=== PATIENT | male | born 1930 | race Caucasian/White ===

== ENCOUNTER 2017-06-11 10:01 | Emergency (ER) | payer BC, MEDICARE ==
[~2017-06-11] VITALS: Ht 180.3 cm; Wt 93.0 kg
[~2017-06-11 10:01] MED LIST: AMLO5TAB96; ANTI12.5 PO; ASPI325T PO; CARD30TA PO; CYCL-36 PO; EZET10; OXYC-360 PO; PROS5TAB2; TAB-TAB
[2017-06-11 10:04] VITALS: BP 165/71; PULSE 60; RESP 16; TEMP 98.6; O2SAT 99
[2017-06-11] MEDS ORDERED: OXYC1TAB63 PO (10:19)
[2017-06-11] MEDS ORDERED: AMLO5TAB2 PO (10:19)
[2017-06-11] MEDS ORDERED: DILT30TA PO (10:19)
[2017-06-11] MEDS ORDERED: FINA5TAB2 PO (10:19)
[2017-06-11] MEDS ORDERED: MECL12.574 PO (10:19)
[2017-06-11 10:30] VITALS: BP 175/75; PULSE 56; RESP 16; O2SAT 97
[2017-06-11] MEDS ORDERED: SODIUM CHLORIDE 0.9% FLUSH 10 ML FLUSH IVF PRN (10:45)
--- NOTE | 2017-06-11 10:48 | PD ---
HPI . Back pain Chief Complaint: Flank/Kidney Pain Time Seen by Provider: 10:31 Travel History International Travel<30 days: No Contact w/Intl Traveler<30days: No Traveled to known affect area: No History of Present Illness HPI This patient presents with chief complaint of low back pain. Onset was about 2 days ago. Pain is bilateral. It is exacerbated by movement. Pain is rated 10/ 10. In addition, the patient is complaining with urinary frequency. He also reports constipation. No fever. No nausea or vomiting. He has not taken anything for his pain. PFSH Past Medical History High Cholesterol: Yes Diminished Hearing: No Hypertension: Yes Myocardial Infarction: Yes (TIMES 3) Past Surgical History Appendectomy: Yes Social History Alcohol Use: Yes (rare) Tobacco Use: Yes (1.3 pack day) Substance Use: No Allergies-Medications (Allergen,Severity, Reaction): Coded Allergies: No Known Allergies (Verified Adverse Reaction, Unknown, 06/11/17) Reported Meds & Prescriptions Reported Meds & Active Scripts Active Valium (Diazepam) 5 Mg Tab 5 Mg PO TID PRN Flomax (Tamsulosin HCl) 0.4 Mg Cap 0.4 Mg PO HS Reported Oxycodone-Acetaminophen 5-325 mg Tab 1 Tab PO Q4H PRN Meclizine (Meclizine HCl) 12.5 Mg Tab 12.5 Mg PO DIRECTED PRN Finasteride 5 Mg Tab 5 Mg PO DAILY Do not crush. Diltiazem (Diltiazem HCl) 30 Mg Tab 20 Mg PO DAILY Amlodipine (Amlodipine Besylate) 5 Mg Tab 5 Mg PO DAILY Review of Systems Except as stated in HPI: all other systems reviewed are Neg General / Constitutional: No: Fever, Chills Gastrointestinal: Positive: Constipation, No: Nausea, Vomiting Genitourinary: Positive: Frequency Musculoskeletal: Positive: Pain (low back pain) Neurologic: No: Paresthesia, Incontinence Physical Exam Narrative GENERAL: Patient is awake and alert and in no acute distress. SKIN: warm/dry. Normal color and turgor. HEAD: Normocephalic. Atraumatic. EYES: Pupils equal and round. No scleral icterus. No injection or drainage. ENT: No nasal bleeding or discharge. Mucous membranes pink and moist. NECK: Trachea midline. Full range of motion without pain.. CARDIOVASCULAR: Regular rate and rhythm. Heart sounds are normal. RESPIRATORY: No accessory muscle use. Clear to auscultation. Breath sounds equal bilaterally. GASTROINTESTINAL: Abdomen soft. Nontender. Bowel sounds present. Nondistended. No pulsatile abdominal mass. RECTAL: No stool load palpable in the rectal vault. Prostate is mildly enlarged. It is nontender. MUSCULOSKELETAL: No obvious deformities. NEUROLOGICAL: Awake and alert. No obvious cranial nerve deficits. Motor grossly within normal limits. Normal speech. PSYCHIATRIC: Appropriate mood and affect; insight and judgment normal. Data Data Last Documented VS Vital Signs Date Time Temp Pulse Resp B/P (MAP) Pulse Ox O2 Delivery O2 Flow Rate FiO2 06/11/17 11:41 16 06/11/17 10:30 56 175/75 (108) 97 Room Air 06/11/17 10:04 98.6 Orders Orders Urinalysis - C+S If Indicated (06/11/17 10:31) Ct Abd/Pel W/O Iv Contrast (06/11/17 10:31) Sodium Chloride 0.9% Flush (Ns Flush) (06/11/17 10:45) Morphine Inj (Morphine Inj) (06/11/17 11:00) Ondansetron Inj (Zofran Inj) (06/11/17 11:00) ^ Saline Lock (06/11/17 10:48) Bladder Scan PRN (06/11/17 11:54) Tamsulosin (Flomax) (06/11/17 12:00) Labs Laboratory Tests Test 06/11/17 10:30 Urine Color LIGHT-YELLOW Urine Turbidity CLEAR Urine pH 5.0 Urine Specific [place] 1.008 Urine Protein NEG mg/dL Urine Glucose (UA) NEG mg/dL Urine Ketones NEG mg/dL Urine Occult Blood NEG Urine Nitrite NEG Urine Bilirubin NEG Urine Urobilinogen LESS THAN 2.0 MG/DL Urine Leukocyte Esterase TRACE Urine RBC 1 /hpf Urine WBC 1 /hpf Urine Squamous Epithelial Cells <1 /hpf Microscopic Urinalysis Comment CULT NOT INDICATED MDM Medical Decision Making Medical Screen Exam Complete: Yes Emergency Medical Condition: Yes Differential Diagnosis Differential diagnosis of flank pain includes but is not limited to kidney stone , pyelonephritis, musculoskeletal pain, PE Narrative Course This patient presents with bilateral low back pain. Pain is exacerbated by movement. He does report associated urinary frequency. However, I suspect that the back pain is musculoskeletal. UA negative Last Impressions Abdomen/Pelvis CT 06/11/17 1031 Signed Impressions: Service Date/Time: Sunday, June 11, 2017 10:56 - CONCLUSION: #1 Diverticulosis of the sigmoid colon without evidence of diverticulitis. 2. Severe prostatic hypertrophy and distention of the bladder which may reflect bladder outlet obstruction. No evidence of hydronephrosis or stones. Norma Kahn MD I have subsequently ordered a bladder scan. He may need a Post catheter. Bladder scanner shows residual urine of about 200 cc. Therefore, Post catheter will not be placed. This patient already takes Percocet. I will discharge him with a prescription for Valium for his back pain. I will start him on Flomax. He is to see his primary care provider later in the week. [facility] Point of Care Internal Pos. & Neg. Controls: Passed Fecal Specimen Occult Blood: Negative Diagnosis Primary Impression: Back pain Qualified Codes: M54.5 - Low back pain Additional Impressions: Urinary retention Prostatic hypertrophy Patient Instructions: Acute Low Back Pain (DC), Benign Prostatic Hypertrophy ( DC), General Instructions Med/Other Pt SpecificInfo: Prescription(s) given Scripts Diazepam (Valium) 5 Mg Tab 5 MG PO TID Y for muscle pain, #12 TAB 0 Refills Prov: Cheryl Farmer MD 06/11/17 Tamsulosin (Flomax) 0.4 Mg Cap 0.4 MG PO HS for Manage Prostate Problems, #30 CAP 0 Refills Prov: Cheryl Farmer MD 06/11/17 Disposition: 01 DISCHARGE HOME Condition: Stable Cheryl Farmer MD Jun 11, 2017 10:47
[2017-06-11 10:55] LABS: BILIRUBIN, URINE NEG (NEG); BLOOD, URINE NEG (NEG); GLUCOSE,URINE NEG (NEG); KETONE, URINE NEG (NEG); NITRITE,URINE NEG (NEG); SQUAMOUS EPITHELIAL CELL URINE <1 /hpf (0-5); URINE COLOR LIGHT-YELLOW (YELLW/STRAW); URINE LEUKOCYTE ESTERASE TRACE (NEG)
[2017-06-11] MEDS ORDERED: MORPHINE SULFATE 2 MG/ML INJ IV PUSH ONE (11:00)
[2017-06-11] MEDS ORDERED: ONDANSETRON HCL 4 MG/2 ML VIAL IV PUSH ONE (11:00)
[2017-06-11 11:41] VITALS: RESP 16
--- NOTE | 2017-06-11 11:45 | RADRPT ---
EXAM DATE/TIME: 06/11/2017 10:56 [facility] COMPARISON: No previous studies available for comparison. INDICATIONS : Bilateral flank pain for two days. ORAL CONTRAST: No oral contrast ingested. RADIATION DOSE: 8.48 CTDIvol (mGy) MEDICAL HISTORY : Hypertension. SURGICAL HISTORY : Appendectomy. ENCOUNTER: Initial ACUITY: 2 days PAIN SCALE: 8/10 LOCATION: Bilateral flank TECHNIQUE: Volumetric scanning of the abdomen and pelvis was performed. Using automated exposure control and ad justment of the mA and/or kV according to patient size, radiation dose was kept as low as reasonably achievable to obtain optimal diagnostic quality images. DICOM format image data is available electro nically for review and comparison. FINDINGS: LOWER LUNGS: The visualized lower lungs are clear. LIVER: Homogeneous density without lesion. There is no dilation of the biliary tree. No calcified gallston es. SPLEEN: Normal size without lesion. PANCREAS: Within normal limits. KIDNEYS: Normal in size and shape. There is no mass, stone, or hydronephrosis. ADRENAL GLANDS: Within normal limits. VASCULAR: Extensive atherosclerosis without evidence of aneurysm. BOWEL/MESENTERY: Diverticulosis of the sigmoid colon without evidence of adjacent inflammatory change, focal wall thic kening or abscess. ABDOMINAL WALL: Within normal limits. RETROPERITONEUM: There is no lymphadenopathy. BLADDER: The bladder is greatly distended. No evidence of wall thickening. REPRODUCTIVE: There is significant prostatic hypertrophy present with the prostate gland measuring 7.0 x 5.9 x 7.4 cm INGUINAL: There is no lymphadenopathy or hernia. MUSCULOSKELETAL: Degenerative changes and bilateral bridging osteophytes involving the SI joints. No lytic or blastic lesion. CONCLUSION: #1 Diverticulosis of the sigmoid colon without evidence of diverticulitis. 2. Severe prostatic hypertrophy and distention of the bladder which may reflect bladder outlet obstru ction. No evidence of hydronephrosis or stones. Norma Kahn MD on June 11, 2017 at 11:39 Board Certified Radiologist. This report was verified electronically.
[2017-06-11] MEDS ORDERED: TAMSULOSIN HCL 0.4 MG CAP PO ONE (12:00)
[2017-06-11] MEDS ORDERED: TAMS5CAP PO (12:08)
[2017-06-11] MEDS ORDERED: DIAZ5 PO (12:08)
== END 2017-06-11 13:13 | disposition home or self-care (01) ==
LOC: NEPE 10:01
DX: M54.5 Low back pain (principal); N40.1 Benign prostatic hyperplasia with lower urinary tract symptoms; R33.8 Other retention of urine; K57.30 Diverticulosis of large intestine without perforation or abscess without bleeding; I10 Essential (primary) hypertension; K59.00 Constipation, unspecified; F17.200 Nicotine dependence, unspecified, uncomplicated
CPT/HCPCS: 74176; 81001; 96374; 96375; 99285; J2270; J2405